=== PATIENT | female | born 1995 | race Caucasian/White ===

== ENCOUNTER 2022-03-03 13:53 | Emergency (ER) | payer MEDICAID, SELFPAY ==
[2022-03-03 13:53] VITALS: BP 123/81; PULSE 126; RESP 18; TEMP 36.6; O2SAT 98; BMI 25.4
--- NOTE | 2022-03-03 14:42 | EX.ED.DYSGE1 ---
HPI History of Present Illness Chief Complaint: Itching Informant: patient Onset/Context/Timing Onset: Weeks (1.5) Context: Gradual Onset Timing: Continuous Quality: painful, itchy Location: initally bilat inner thighs, now spreading Current Severity: Moderate Maximum Severity: Moderate Worsened by: at night. palpation. steroids. Relieved by: nothing. Associated Symptoms Associated Symptoms: no systemic sx. Narrative Narrative: Patient started having a rash about a week and a half ago, she states started 2 or 3 days after [place] was [place] and states she was straddling her dog, she had shorts on, she started getting the rash around the area where she was straddling her dog on her thighs. She thought it was poison pancho. She went to urgent care, was prescribed prednisone and triamcinolone cream, she has been taking them and everything has been getting worse and now it is spreading to other areas of her body including her suprapubic area/mons, labia, hands, arms, lower legs. She denies any fevers or chills, sometimes they seep clear yellow liquid, then they scab over and the scabs are catching on clothing, and it is very painful especially at night when she is trying to rest. PFSH PFSH Medical History no medical history no medical history Home Medications acetaminophen 300 mg-codeine 30 mg tablet 1 tab PO Q6H PRN pain 2 days #5 tabs 03/03/22 [Rx Last Taken Unknown] amoxicillin 875 mg-potassium clavulanate 125 mg tablet 875 mg PO Q12H #20 TABLETS 03/03/22 [Rx Last Taken Unknown] Allergy/AdvReac Type Severity Reaction Status Date / Time triamcinolone Allergy Rash Verified 03/03/22 13:55 Surgical History no surgical history no surgical history Social History Smoking Status: Never smoker ROS ROS ED Constitutional Constitutional ED: Denies chills or fever(s) Eyes Eyes: Denies change in vision or diplopia ENT ENT ED: Denies rhinorrhea or sore throat Cardiovascular Cardiovascular: Denies chest pain or palpitations Respiratory/Chest Respiratory/Chest: Denies cough or dyspnea Gastrointestinal Gastrointestinal: Denies abdominal pain, diarrhea, nausea or vomiting Genitourinary Genitourinary ED: Denies dysuria or hematuria Musculoskeletal Musculoskeletal: Denies back pain or neck pain Integumentary Reports rash; Denies abscess Neurologic Neurologic: Denies headache(s), paresthesias or weakness Psychiatric Psychiatric: Denies anxiety or suicidal thoughts EXAM Physical Exam Const Vital Signs: 03/03/22 13:53 Temperature 98 F Temperature Source Temporal Pulse Rate 126 H Respiratory Rate 18 Blood Pressure 123/81 H Blood Pressure Mean 95 Pulse Ox 98 Oxygen Delivery Method Room Air Positive well nourished and well developed General Appearance ED: well developed and NAD HEENT Reports moist mucous membranes normocephalic and atraumatic Eyes PERRL and EOMs intact bilaterally Neck full ROM and supple Resp normal respiratory effort Effort and Inspection: able to speak in complete sentences Back/Spine General Back: other FROM Extremity General Extremety ED: Negative for edema or pulses abnormal General Extremity: Negative for edema or pulses abnormal Neuro oriented x3, CN's II-XII intact bilaterally and no sensory deficits noted Sensorium / Orientation: awake and alert Motor Exam: strength 5/5 throughout Skin Skin Narrative: Large patches of tender scabbed lesions that are not raised, the largest ones are on the insides of her thighs proximally, she has some scattered satellite lesions that are similar on her mons pubis and other lesions on her hands, upper arms, and lower legs, most of which are less severe appearing than her proximal thighs. MDM MDM MDM Narrative Medical decision making narrative: Patient shows me pictures of this when it was a couple days old at the beginning, of her inner thighs. They were erythematous, a little scaly, with slightly raised pustular lesions surrounding it that appeared to be full of clear yellow fluid which the patient confirms. That in conjunction with her current exam is consistent with bullous impetigo. She is advised to discontinue all steroids immediately and I am putting her on a 10-day course of Augmentin, which should clear this up eventually. If she needs another course which is not uncommon, she should follow-up with her PCP or urgent care or come back to the ER. She is comfortable with that plan. Discharge Plan Triage Chief Complaint: Itching ED Provider: Julio Brandon Dx/Rx/DC Orders Clinical Impression: Bullous impetigo Instructions: Staph Infection (Non-MRSA), Understanding Impetigo Prescriptions: New amoxicillin-pot clavulanate [amoxicillin-pot clavulanate] 875-125 mg tablet 875 mg PO Q12H Qty: 20 0RF acetaminophen-codeine 300-30 mg tablet 1 tab PO Q6H PRN (Reason: pain) 2 Days Qty: 5 0RF Primary Care Provider: Care Physician,No Primary Referrals: Doctor,Your [Non-Staff] - 10-14 Days if not better Activity Restrictions/Additional Instructions: STOP TAKING the prednisone and topical triamcinolone cream. Disposition Disposition: Home, Self Care
[2022-03-03] MEDS: Amox/Clavulanate 875 MG Tablet PO (14:55)
== END 2022-03-03 15:05 | disposition home or self-care (01) ==
PROVIDERS: Emergency Provider Emergency Medicine; Visit Provider Emergency Medicine
DX: L01.03 Bullous impetigo (principal)
CPT/HCPCS: 99283